=== PATIENT | male | born 1940 | race Caucasian/White ===

== ENCOUNTER 2019-06-30 11:00 | Day surgery (SDC) | payer OTHER, MEDICARE ==
[2019-06-30] MEDS ORDERED: PHENYLEPHRINE 2.5% OPHTH SOLN 15 ML BOTTLE ONE (11:18)
[2019-06-30] MEDS ORDERED: KETOROLAC TROMETHAMINE 0.5% EYE DROP 1 DROP DROPS ONE (11:18)
[2019-06-30] MEDS ORDERED: TROPICAMIDE 1% OPHTH SOLN 15 ML BOTTLE ONE (11:18)
[2019-06-30] MEDS ORDERED: CYCLOPENTOLATE HCL 1% OPHTH SOLN 2 ML BOTTLE ONE (11:18)
[2019-06-30] MEDS ORDERED: OFLOXACIN 0.3% OPHTHALMIC SOLUTION 5 ML BOTTLE ONE (11:18)
[2019-06-30] MEDS: OFLOXACIN 0.3% OPHTHALMIC SOLUTION 5 ML BOTTLE OS SCH ×5 (11:30→11:50)
[2019-06-30] MEDS: KETOROLAC TROMETHAMINE 0.5% EYE DROP 1 DROP DROPS OS SCH ×5 (11:30→11:50)
[2019-06-30] MEDS: TROPICAMIDE 1% OPHTH SOLN 15 ML BOTTLE OS SCH ×5 (11:30→11:50)
[2019-06-30] MEDS: PHENYLEPHRINE 2.5% OPHTH SOLN 15 ML BOTTLE OS SCH ×5 (11:30→11:50)
[2019-06-30] MEDS: CYCLOPENTOLATE HCL 1% OPHTH SOLN 2 ML BOTTLE OS SCH ×5 (11:30→11:50)
[2019-06-30] MEDS ORDERED: ACETAMINOPHEN 325 MG TABLET (FP) PO PRN (11:49)
[2019-06-30] MEDS ORDERED: POVIDONE-IODINE 5% OPHTHALMIC PREP 30 ML SOLUTION ONE (13:08)
[2019-06-30] MEDS ORDERED: EPI-SHUGARCAINE (EPINEPHRINE 0.025% & LIDOCAINE-PF 0.75%) 4ML ONE (13:08)
[2019-06-30] MEDS ORDERED: BACITRACIN/POLYMYXIN OPH OINT 3.5 GM TUBE ONE (13:08)
[2019-06-30] MEDS ORDERED: BETAXOLOL HCL 0.25% OPHTHALMIC 10 ML DROPSBTL ONE (13:08)
[2019-06-30] MEDS ORDERED: TETRACAINE 0.5% OPHTH SOLN 2 ML BOTTLE ONE ×2 (13:08→14:17)
[2019-06-30] MEDS ORDERED: NEO/POLYMYX B SULF/DEXAMETH OPHTHALMIC 5ML BOTTLE ONE (13:09)
[2019-06-30] MEDS ORDERED: MIDAZOLAM HCL 2 MG/2 ML SINGLE DOSE VIAL ONE (13:36)
--- NOTE | 2019-06-30 17:08 | OP ---
DATE OF OPERATION: 06/30/2019 PREOPERATIVE DIAGNOSIS: Cataract, left eye. POSTOPERATIVE DIAGNOSIS: Cataract, left eye. PROCEDURE: Cataract extraction via phacoemulsification with insertion of posterior chamber lens implant, left eye, limbal relaxing incision, left eye. SURGEON: Cl Bellamy MD HEAVY DUTY PRESS OPERATOR: Cl Bellamy MD ANESTHESIA: Topical with sedation. ESTIMATED BLOOD LOSS: Less than 1 mL. COMPLICATIONS: None. SPECIMENS: None. DESCRIPTION OF PROCEDURE: The patient was identified in the holding area. After all risks, benefits, and alternatives were explained to the patient, informed consent was obtained. The left eye was marked with a marking pen. The patient then entered the operating room on an eye stretcher. After a formal time-out was performed, topical tetracaine eye drops were instilled onto the left eye. The patient was then instructed to sit up and look straight ahead, and the cardinal axes of astigmatism were marked using a Toric bubble marker and a Toric marking pen. Patient was then asked to lay back down, and the left eye was prepped and draped in the usual sterile fashion. An eyelid speculum was placed beneath the eyelid of the left eye. Then the axis of astigmatism was marked onto the left cornea, which was noted to be 175 degrees. Then 30-degree arch was created using a marking pen with a center on each of the 125-degree axis dunne nasally and temporally. Then an inferotemporal paracentesis incision was created using a 15-degree blade. Preservative-free epinephrine and preservative-free lidocaine was then injected into the anterior chamber. Viscoelastic was then injected into the anterior chamber. A 2.4-mm keratome blade was then used to make a superotemporal incision. A 360-degree continuous curvilinear capsulorrhexis was then created using bent cystotome and Utrata forceps. Hydrodissection was performed using balanced saline solution on a cannula. Phacoemulsification was introduced to disassemble and remove the nucleus in its entirety. Irrigation/aspiration was then used to remove any remaining cortical material from the eye. Capsular bag was reformed using viscoelastic. An [employer] Model TFNT00 with a power of 22.0 diopter serial number [id number] was inspected and found to be defect free and injected into the capsular bag. Irrigation/aspiration was then used to remove any remaining viscoelastic from the eye including posterior to the optic. The intraocular lens was rotated so that the center of the intraocular lens matched up with the central Purkinje image, and again using the Purkinje images with the microscope, the lens was perfectly centered in the capsular bag. Then all wounds were hydrated with balanced saline solution and noted to be watertight. Then a nasal and temporal arch limbal relaxing incision was created. At the nasal limbus, it centered on the 175-degree meridian, and it extended for 30 degrees. Temporally, it was the same. It centered on the 175-degree meridian and was a total of 30 degrees for the incision. It was created at a 500 micron depth using a marissa blade. Then antibiotic eyedrops and ointment were then administered to the left eye. The eyelid speculum was removed from the left eye. It was noted that there was a red reflex present. The anterior chamber was deep. The eye had adequate pressure, and the lens was perfectly centered in the capsular bag with verification by the Purkinje reflexes. The left eye was shielded. The patient tolerated the procedure well. Left the operating room in stable condition to follow up in the eye clinic tomorrow morning at 10 o'clock. CL BELLAMY M.D. [id number]
== END 2019-06-30 15:15 | disposition home or self-care (01) ==
LOC: FASU 11:00
PROVIDERS: ATTEND Ophthalmology
PROC: 08RK3JZ Replacement of Left Lens with Synthetic Substitute, Percutaneous Approach (ICD-10-PCS; principal; 2019-06-30 13:48)
DX: H26.9 Unspecified cataract (principal)

== ENCOUNTER 2019-07-28 11:54 | Day surgery (SDC) | payer OTHER, MEDICARE ==
[~2019-07-28 11:54] MED LIST: CYCLOPENTOLATE HCL 1% OPHTH SOLN 2 ML BOTTLE OD SCH; KETOROLAC TROMETHAMINE 0.5% EYE DROP 1 DROP DROPS OD SCH; OFLOXACIN 0.3% OPHTHALMIC SOLUTION 5 ML BOTTLE OD SCH; PHENYLEPHRINE 2.5% OPHTH SOLN 15 ML BOTTLE OD SCH; TROPICAMIDE 1% OPHTH SOLN 15 ML BOTTLE OD SCH
[2019-07-28] MEDS ORDERED: KETOROLAC TROMETHAMINE 0.5% EYE DROP 1 DROP DROPS ONE (12:02)
[2019-07-28] MEDS ORDERED: PHENYLEPHRINE 2.5% OPHTH SOLN 15 ML BOTTLE ONE (12:02)
[2019-07-28] MEDS ORDERED: CYCLOPENTOLATE HCL 1% OPHTH SOLN 2 ML BOTTLE ONE (12:02)
[2019-07-28] MEDS ORDERED: OFLOXACIN 0.3% OPHTHALMIC SOLUTION 5 ML BOTTLE ONE (12:02)
[2019-07-28] MEDS ORDERED: TROPICAMIDE 1% OPHTH SOLN 15 ML BOTTLE ONE (12:02)
[2019-07-28] MEDS ORDERED: OFLOXACIN 0.3% OPHTHALMIC SOLUTION 5 ML BOTTLE OD ONE ×5 (12:35→12:55)
[2019-07-28] MEDS ORDERED: KETOROLAC TROMETHAMINE 0.5% EYE DROP 1 DROP DROPS OD ONE ×5 (12:35→12:55)
[2019-07-28] MEDS ORDERED: PHENYLEPHRINE 2.5% OPHTH SOLN 15 ML BOTTLE OD ONE ×5 (12:35→12:55)
[2019-07-28] MEDS ORDERED: TROPICAMIDE 1% OPHTH SOLN 15 ML BOTTLE OD ONE ×5 (12:35→12:55)
[2019-07-28] MEDS ORDERED: CYCLOPENTOLATE HCL 1% OPHTH SOLN 2 ML BOTTLE OD ONE ×5 (12:35→12:55)
[2019-07-28] MEDS ORDERED: ACETAMINOPHEN 325 MG TABLET (FP) PO PRN (13:03)
[2019-07-28] MEDS ORDERED: BETAXOLOL HCL 0.25% OPHTHALMIC 10 ML DROPSBTL ONE (14:18)
[2019-07-28] MEDS ORDERED: BACITRACIN/POLYMYXIN OPH OINT 3.5 GM TUBE ONE (14:18)
[2019-07-28] MEDS ORDERED: EPI-SHUGARCAINE (EPINEPHRINE 0.025% & LIDOCAINE-PF 0.75%) 4ML ONE (14:19)
[2019-07-28] MEDS ORDERED: POVIDONE-IODINE 5% OPHTHALMIC PREP 30 ML SOLUTION ONE (14:19)
[2019-07-28] MEDS ORDERED: TETRACAINE 0.5% OPHTH SOLN 2 ML BOTTLE ONE (14:19)
[2019-07-28] MEDS ORDERED: NEO/POLYMYX B SULF/DEXAMETH OPHTHALMIC 5ML BOTTLE ONE (14:19)
[2019-07-28] MEDS ORDERED: MIDAZOLAM HCL 2 MG/2 ML SINGLE DOSE VIAL ONE (14:44)
[2019-07-28] MEDS ORDERED: BSS (NA/CA/MG/K) BALANCED SALT SOLUTION OPHTH SOLN 15 ML BOTTLE ONE (15:00)
--- NOTE | 2019-07-28 15:44 | OP ---
DATE OF OPERATION: 07/28/2019 PREOPERATIVE DIAGNOSIS: Cataract, right eye. POSTOPERATIVE DIAGNOSIS: Cataract, right eye. PROCEDURE: Cataract extraction via phacoemulsification with insertion of posterior chamber lens implant, right eye. SURGEON: Sabrina Bellamy MD DIRECTOR ENGINEERING: Sabrina Bellamy MD ANESTHESIA: Topical with sedation. ESTIMATED BLOOD LOSS: Less than 1 mL. COMPLICATIONS: None. SPECIMENS: None. DESCRIPTION OF PROCEDURE: The patient was identified in the holding area. After all risks, benefits, and alternatives were explained to the patient, informed consent was obtained. The right eye was marked with a marking pen. The patient then entered the operating room on an eye stretcher. After a formal time-out was performed, topical tetracaine eye drops were instilled onto the right eye. The right eye was then prepped and draped in the usual sterile fashion. An eyelid speculum was placed beneath the eyelid of the right eye. A superotemporal paracentesis incision was created using a 15-degree blade. Topical preservative-free epinephrine and preservative-free lidocaine were then injected into the anterior chamber. Viscoelastic was then injected into the anterior chamber. A 2.4-mm keratome blade was then used to make an infratemporal incision. A 360-degree continuous curvilinear capsulorrhexis was then created using bent cystotome and Utrata forceps. Hydrodissection was performed using the balanced saline solution on a cannula. Phacoemulsification was introduced to disassemble and remove the nucleus in its entirety. Irrigation/aspiration was then used to remove any remaining cortical material from the eye. The capsular bag was reformed using viscoelastic. An [employer] Model TFNT00 with a power of 21.5 diopter serial number [id number] was inspected and found to be defect free and injected into the capsular bag. Irrigation/aspiration was then used to remove any remaining viscoelastic from the eye including posterior to the optic. The intraocular lens was centered so that the central part of the optic fell right in the center of the central Purkinje light reflex. It was confirmed by asking the patient to look straight toward the microscope light. Once the lens was perfectly centered and confirmed using Purkinje images, all wounds were hydrated with balanced saline solution and noted to be watertight. The anterior chamber was deep. The lens was perfectly centered in the capsular bag. There was a red reflex present, and the eye had an adequate pressure. Topical antibiotic eyedrops and ointment were then administered to the right eye. The eyelid speculum was removed from the right eye. The right eye was shielded. The patient tolerated the procedure well. Left the operating room in stable condition to follow up in the eye clinic tomorrow morning at 10 o'clock. SABRINA BELLAMY M.D. [id number]
== END 2019-07-28 15:55 | disposition home or self-care (01) ==
LOC: FASU 11:54
PROVIDERS: ATTEND Ophthalmology
PROC: 08RJ3JZ Replacement of Right Lens with Synthetic Substitute, Percutaneous Approach (ICD-10-PCS; principal; 2019-07-28 14:48)
DX: H26.9 Unspecified cataract (principal)